=== PATIENT | female | born 1945 | race Caucasian/White ===

== ENCOUNTER → 2020-08-21 15:08 | Outpatient (BNV) | payer MEDICAID, SELFPAY | PROVIDERS: Visit Provider Internal Medicine Medical Oncology | DX: C20 Malignant neoplasm of rectum (principal); Z85.3 Personal history of malignant neoplasm of breast | CPT/HCPCS: 99213; 99214 ==

== ENCOUNTER 2020-09-13 16:52 | Outpatient (REF) | payer MEDICAID, SELFPAY ==
--- NOTE | 2020-09-13 | MM_ITS ---
EXAMINATION: MM SCREENING DIGITAL BREAST TOMOSYNTHESIS, BILATERAL CLINICAL INFORMATION: Screening. Status post right breast lumpectomy. COMPARISON: Mammography: September 07, 2018 and studies dating back to May 29, 2016. TECHNIQUE: Digital breast tomosynthesis is performed in both the craniocaudal and mediolateral oblique views along with computer-aided detection (CAD). Synthesized 2D images are generated from the tomosynthesis. FINDINGS: There are scattered areas of fibroglandular density (ACR BI-RADS breast composition Category b). No new abnormal dominant mass identified. No new suspicious grouping of microcalcifications. Status post postsurgical change from previous lumpectomy right breast. MM/MM tomosynthesis screening BI IMPRESSION: There are no significant changes from prior study. ASSESSMENT: BI-RADS 2: Benign RECOMMENDATION: Routine annual mammography screening. This patient's information was entered into a reminder system with a target due date for their next mammogram.
== END 2020-09-13 16:53 | disposition home or self-care (01) ==
LOC: HO.MAMMO 16:52
PROVIDERS: Visit Provider Internal Medicine Medical Oncology
DX: C50.911 Malignant neoplasm of unspecified site of right female breast (principal)
CPT/HCPCS: 77063; 77067; 99212

== ENCOUNTER → 2022-05-22 12:51 | Outpatient (BNVA) | payer MEDICAID, SELFPAY | PROVIDERS: PCP Internal Medicine; Visit Provider Internal Medicine | DX: R93.5 Abnormal findings on diagnostic imaging of other abdominal regions, including retroperitoneum (principal); R10.30 Lower abdominal pain, unspecified; K57.90 Diverticulosis of intestine, part unspecified, without perforation or abscess without bleeding | CPT/HCPCS: 99202 ==

== ENCOUNTER 2022-05-27 08:50 | Day surgery (SDC) | payer MEDICAID, SELFPAY ==
--- NOTE | 2022-05-27 09:18 | MHC.SHP ---
Pre-Procedural Eval Section A Date of Service: 05/27/22 The patient is an INPATIENT: No Changes since office visit: Yes New Medical Problems and Yes Patient answered all questions; No Cold of Flu in the past 2 weeks and No Changes in Medication The History & Physical has been completed within 30 days and I have reviewed it.: Yes Section B Chief Complaint: screening Allergies: Allergies Allergy/AdvReac Type Severity Reaction Status Date / Time shellfish derived Allergy Severe ANAPHYLAXIS Verified 05/22/22 13:00 [SHELLFISH DERIVED] Plan I have reviewed the history and physical and performed a pertinent physical examination on my patient. No changes have occurred unless specified.
--- NOTE | 2022-05-27 09:18 | PM.OP ---
Brief Operative Note Date of Service: 05/27/22 Pre-op diagnosis: Abnormal CT scan of the rectosigmoid Post-op diagnosis: other ( rectal mass, colon polyps, diverticulosis, right colon AVMs) Procedure: COLONOSCOPY TILL CECUM WITH BIOPSIES AND SNARE POLYPECTOMY Consent: Indications for the procedure and potential complications of bleeding, perforation, reaction to medications and missed diagnosis were discussed with the patient and informed consent was obtained. Instrument: Olympus PCF H 190 L variable stiffness pediatric colonoscope Monitoring: Vital signs and clinical assessment, intermittent blood pressure monitoring, continuous EKG monitoring, Pulse oximetry and Carbon Dioxide monitoring were done throughout the procedure. Colon withdrawl time was 25 minutes. Procedure: The patient was placed in the left lateral decubitis position and pre-procedure medications were administered. After a digital rectal examination of the ano-rectum, the video colonoscope was inserted into the rectum and advanced through the colon to the cecum. The colonoscope was slowly withdrawn in a retrograde panoramic fashion and the colon mucosa was carefully examined including a retroflexed view of the rectum. Findings and interventions are described below. Procedure Difficulty: Without difficulty Findings: Terminal Ileum: Not evaluated Cecum: An 8-9 mm sessile polyp removed with a cold snare. A 9-10 mm nonbleeding AVM. Ascending Colon: A 7-8 mm sessile polyp in the proximal ascending colon removed with a cold snare. Two 8-10 mm nonbleeding AVMs in the ascending colon. Transverse Colon: Normal Descending Colon: Moderate diverticulosis Sigmoid Colon: A 9-10 mm sessile polyp removed with a hot snare. Moderate diverticulosis Rectum: A polypoidal and circumferential mass from 0 to 8 cms occupying the distal rectum. Mass appeared friable and ulcerated from 0 to 5 cms. Multiple biopsies were obtained with with a cold biopsy forceps and a cold snare Ano-rectum: Possible infilteration of anal sphincter with the mass Colon preparation: Good Impression and Post Procedure Diagnosis: Colonoscopy Findings: Three small to medium sized polyps removed A polypoidal and circumferential mass from 0 to 8 cms occupying the distal rectum. 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 Multiple biopsies were obtained with with a cold biopsy forceps and a cold snare Moderate diverticulosis seen in the left colon Plan: Await pathology results Patient has an appointment on 05/29/22 in the [facility] with Dr Elena to discuss bx results. Repeat Colonoscopy interval based on path results - in 6 months if biopsies confirm rectal cancer. Dr Zeng was requested to step in during the procedure and advised referral to Oncology for chemo-radiation therapy first followed by re-staging Above findings were reviewed with the patient and her son (Dr Sadler - Senior Executive Assistant and Critical care Physician in [place]) Pt's son requested referral to Dr Flores whom pt has seen in the past for treatment of breast cancer. Colon polyps and diverticulosis handouts were given in the discharge area Surgeon: Sarai Lowe MD Anesthesia: MAC Was an Mid Level Java Developer used for this Procedure?: Yes Mid Level Java Developer: Rosemarie Cárdenas Estimated blood loss (mL): 2 Pathology: other (A. cecal polyp B. ascending colon polyp C. rectal mass bxs) Condition: stable Disposition: PACU
--- NOTE | 2022-05-27 09:32 | HO.ANESPROP2 ---
PMFSH Active Problems Active Problems: All Active Problems (Updated 09/13/20 @ 17:28 by Radha Hong MD) Breast cancer (Acute) Past Medical History Medical History Arthritis Hearing loss Osteopenia Family History Family History Father Cancer Diabetes HTN (hypertension) Mother Diabetes HTN (hypertension) Surgical History Surgical History History of lumpectomy of right breast History of Problems with Anesthesia: No Social History Social History Alcohol intake: never Advance Directives: No Advance Directives Information Provided: Yes Meds Allergies Allergy/AdvReac Type Severity Reaction Status Date / Time shellfish derived Allergy Severe ANAPHYLAXIS Verified 05/22/22 13:00 [SHELLFISH DERIVED] Home Medications Medication Instructions Recorded Confirmed Last Taken Type cefuroxime axetil 125 mg/5 mL oral 500 mg PO 05/22/22 Unknown History suspension Exam Exam Date and Time: May 27, 2022 0932 Airway Mallampati Class: II TM Dist: >3cm Neck ROM: Full Loose/Missing/Broken Teeth: No Heart: RRR Lungs: CTA Assessment and Plan Assessment Anesthesia Assessment: Anesthesia Plan Discussed and Chart Reviewed Final Anesthetic Review History of Problems with Anesthesia: No NPO: Yes ASA Class: II Final Preanesthetic Review: Meds/Allgs Chart Reviewed, Consent Obtained/Reviewed and Anes Risks/Benef Reviewed Patient Risk: Low Procedure Risk: Low Anesthetic Plan Anesthetic Plan: MAC: Disposition: Standard PACU
[2022-05-27 09:49] VITALS: BP 148/70; PULSE 66; RESP 18; TEMP 36.3; O2SAT 97; BMI 29.5
[2022-05-27] MEDS: Lactated Ringers 1,000 ML 50 ML IVCONT (10:00)
--- NOTE | 2022-05-27 10:08 | W.PM.OPN ---
Operative Note Operative Note Date of Service: 05/27/22 Narrative: Pre-op diagnosis: Abnormal CT scan of the rectosigmoid Post-op diagnosis:?other (? rectal mass, colon polyps, diverticulosis, right colon AVMs) Procedure: COLONOSCOPY TILL CECUM WITH BIOPSIES AND SNARE POLYPECTOMY Consent: Indications for the procedure and potential complications of bleeding, perforation, reaction to medications and missed diagnosis were discussed with the patient and informed consent was obtained. Instrument: Olympus PCF H 190 L variable stiffness pediatric colonoscope Monitoring: Vital signs and clinical assessment, intermittent blood pressure monitoring, continuous EKG monitoring, Pulse oximetry and Carbon Dioxide monitoring were done throughout the procedure. Colon withdrawl time was 25 minutes. Procedure: The patient was placed in the left lateral decubitis position and pre-procedure medications were administered. After a digital rectal examination of the ano-rectum, the video colonoscope was inserted into the rectum and advanced through the colon to the cecum. The colonoscope was slowly withdrawn in a retrograde panoramic fashion and the colon mucosa was carefully examined including a retroflexed view of the rectum. Findings and interventions are described below. Procedure Difficulty: Without difficulty Findings: Terminal Ileum: Not evaluated Cecum:? An 8-9 mm sessile polyp removed with a cold snare. A 9-10 mm? nonbleeding AVM. Ascending Colon:? A 7-8 mm sessile? polyp in the proximal ascending colon removed with a cold snare. Two 8-10 mm? nonbleeding AVMs in the ascending colon. Transverse Colon:? Normal Descending Colon:? ? Moderate diverticulosis Sigmoid Colon:? A 9-10 mm sessile polyp? removed with a hot snare.? Moderate diverticulosis Rectum:? A polypoidal and circumferential mass from 0 to 8 cms occupying the distal rectum.? Mass appeared friable and ulcerated from 0 to 5 cms.? Multiple biopsies were obtained with with a cold biopsy forceps and a cold snare Ano-rectum:? Possible infilteration of anal sphincter with the mass Colon preparation:? Good? Impression and Post Procedure Diagnosis: Colonoscopy Findings: Three small to medium sized polyps removed A polypoidal and circumferential mass from 0 to 8 cms occupying the distal rectum.? 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 Multiple biopsies were obtained with with a cold biopsy forceps and a cold snare Moderate diverticulosis seen in the left colon Plan: Await pathology results Patient has an appointment on 05/29/22 in the GI Clinic with Dr Elena to discuss bx results. Repeat Colonoscopy interval based on path results - in 6 months if biopsies confirm rectal cancer. Dr Zeng was requested to step in during the procedure and advised referral to Oncology for chemo-radiation therapy first followed by re-staging Above findings were reviewed with the patient and her son (Zaire - Nuclear Security Officer and Critical care Physician in [place]) Pt's son requested referral to Dr Flores whom pt has seen in the past for treatment of breast cancer. Colon polyps and diverticulosis handouts were given in the discharge area Surgeon: Sarai Lowe MD Anesthesia:?MAC Was an Observer Electrical Prospecting used for this Procedure?:?Yes Observer Electrical Prospecting:?Rosemarie Cárdenas Estimated blood loss (mL):?2 Pathology:?other (A. cecal polyp? B. ascending colon polyp? C. rectal mass bxs) Condition:?stable Disposition:?PACU
[2022-05-27 11:06] VITALS: BP 81/40; PULSE 60; RESP 16; TEMP 36.9; O2SAT 97
[2022-05-27 11:21] VITALS: BP 116/55; PULSE 60; RESP 18; O2SAT 98
[2022-05-27 11:36] VITALS: BP 138/61; PULSE 57; RESP 18; TEMP 36.8; O2SAT 97
== END 2022-05-27 12:46 | disposition home or self-care (01) ==
PROVIDERS: PCP Student in an Organized Health Care Education/Training Program; Visit Provider Internal Medicine Gastroenterology
PROC: 0DJD8ZZ Inspection of Lower Intestinal Tract, Via Natural or Artificial Opening Endoscopic (ICD-10-PCS; CPT 45378; principal; 2022-05-27 10:20)
DX: R93.3 Abnormal findings on diagnostic imaging of other parts of digestive tract (principal); R19.4 Change in bowel habit; R10.9 Unspecified abdominal pain; D12.0 Benign neoplasm of cecum; D12.2 Benign neoplasm of ascending colon; D12.8 Benign neoplasm of rectum; K62.89 Other specified diseases of anus and rectum; K57.30 Diverticulosis of large intestine without perforation or abscess without bleeding; K55.20 Angiodysplasia of colon without hemorrhage; I10 Essential (primary) hypertension; Z85.3 Personal history of malignant neoplasm of breast; Z92.21 Personal history of antineoplastic chemotherapy; M85.80 Other specified disorders of bone density and structure, unspecified site; Z92.3 Personal history of irradiation; H91.90 Unspecified hearing loss, unspecified ear
CPT/HCPCS: 45385; 45380; 88305

== ENCOUNTER → 2022-05-29 11:01 | Outpatient (BNVA) | payer MEDICAID, SELFPAY | PROVIDERS: PCP Student in an Organized Health Care Education/Training Program; Referring Provider Student in an Organized Health Care Education/Training Program; Visit Provider Internal Medicine | DX: K62.89 Other specified diseases of anus and rectum (principal); D12.0 Benign neoplasm of cecum; D12.2 Benign neoplasm of ascending colon; Z98.890 Other specified postprocedural states | CPT/HCPCS: 99212 ==

== ENCOUNTER 2022-05-30 09:30 | Outpatient (REF) | payer MEDICAID, SELFPAY | END 2022-05-30 09:31 | disposition home or self-care (01) | LOC: HO.LAB 09:30 | PROVIDERS: Visit Provider Surgery | DX: K62.89 Other specified diseases of anus and rectum (principal) | CPT/HCPCS: 88305; 88341; 88342 ==

== ENCOUNTER 2022-05-30 13:23 | Day surgery (SDC) | payer MEDICAID, SELFPAY ==
[2022-05-30 13:53] VITALS: BP 142/74; PULSE 82; RESP 18; TEMP 36.1; O2SAT 98; BMI 24.9
--- NOTE | 2022-05-30 15:00 | HO.ANESPROP2 ---
HPI - Anesthesia Eval Consult details Narrative: 76 yo female patient for flexible sigmoidoscopy PMFSH Active Problems Active Problems: All Active Problems (Updated 05/30/22 @ 09:17 by Vignesh Zeng MD) History of breast cancer (Acute) Rectal mass (Acute) Breast cancer (Acute) Past Medical History Medical History (Updated 05/30/22 @ 09:17 by Vignesh Zeng MD) Arthritis Hearing loss History of breast cancer Osteopenia Family History Family History Father Cancer Diabetes HTN (hypertension) Mother Diabetes HTN (hypertension) Family history of problems with anesthesia: No Surgical History Surgical History History of lumpectomy of right breast History of Problems with Anesthesia: No Social History Social History Are you a primary director of career resources to a significant other at home: No Alcohol intake: never Patient Tobacco Use Status: Never used Tobacco Use of substances other than those prescribed or required for medical reasons: No Are you DNR?: No Advance Directives: No Advance Directives Information Provided: Yes Meds Allergies Allergy/AdvReac Type Severity Reaction Status Date / Time shellfish derived Allergy Severe ANAPHYLAXIS Verified 05/30/22 08:35 [SHELLFISH DERIVED] Active Medications: Current Medications Lactated Ringer's (Lr) 1,000 mls @ 50 mls/hr IVCONT .Q20H BUTCH Home Medications Medication Instructions Recorded Confirmed Last Taken Type cefuroxime axetil 125 mg/5 mL oral 500 mg PO 05/22/22 05/30/22 Unknown History suspension Exam Exam Date and Time: May 30, 2022 1500 Height,Weight and Vital Signs: Height 5 ft 4 in Weight 65.771 kg Last Vital Signs Temp 97.0 F 05/30/22 13:53 Pulse 82 05/30/22 13:53 Resp 18 05/30/22 13:53 BP 142/74 H 05/30/22 13:53 Pulse Ox 98 05/30/22 13:53 O2 Del Method 05/30/22 13:53 Airway Mallampati Class: II TM Dist: >3cm Neck ROM: Full Loose/Missing/Broken Teeth: No Heart: RRR Lungs: CTAB Assessment and Plan Assessment Anesthesia Assessment: Anesthesia Plan Discussed and Chart Reviewed Final Anesthetic Review Family History of Problems with Anesthesia: No History of Problems with Anesthesia: No NPO: Yes ASA Class: II Final Preanesthetic Review: No Changes in Pt Med Stat, Meds/Allgs Chart Reviewed, Consent Obtained/Reviewed and Anes Risks/Benef Reviewed Patient Risk: Low Procedure Risk: Low Assessment/Block/Sedation in SS: Assess/Block/Sedation-SS Anesthetic Plan Anesthetic Plan: MAC: Disposition: Standard PACU
--- NOTE | 2022-05-30 15:13 | MHC.SHP ---
Pre-Procedural Eval Section A Date of Service: 05/30/22 The patient is an INPATIENT: No The History & Physical has been completed within 30 days and I have reviewed it.: Yes Section B Chief Complaint: Other specified diseases of anus and rectum Allergies: Allergies Allergy/AdvReac Type Severity Reaction Status Date / Time shellfish derived Allergy Severe ANAPHYLAXIS Verified 05/30/22 08:35 [SHELLFISH DERIVED] Review of Systems Review of Systems Comment: unchanged from office visit Exam Exam Comment: Gen appear: No acute distress, well nourished HEENT: no icterus, Chest: No overt resp distress Abd: soft, tenderness in suprapubic region Psych: Stable affect, answering questions appropriately Neuro: A/Ox3 noted to move all extremities spontaneously Ext: no peripheral edema Plan Diagnosis/Plan: Unchanged I have reviewed the history and physical and performed a pertinent physical examination on my patient. No changes have occurred unless specified.
--- NOTE | 2022-05-30 15:37 | W.PM.OPN ---
Operative Note Operative Note Date of Service: 05/30/22 Narrative: Procedure: Flexible sigmoidoscopy Indication: Known rectal mass; rebiopsy Endoscopist: Mariam Elena MD Anesthesia Provider: Dr Zoila Greer Anesthesia type: MAC Instrument: Olympus GIF-190 Consent: Indication, risks vs benefits, and alternatives were discussed with the patient who gave written informed consent to proceed. Monitoring: EKG, pulse, pulse oximetry and blood pressure were monitored throughout the procedure. Medications: Please see anesthesia flowsheet. Procedure: The patient was brought to the procedure room and placed in the left lateral decubitus position. IV medications were administered by the anesthesia provider in attendance. A digital rectal exam was performed which was abnormal due to palpable nodularity in the posterior rectal wall. The gastroscope was then inserted through the anus and advanced through the colon to the distal sigmoid colon at 30 cm. Mucosa was carefully examined under high definition white light as the instrument was slowly withdrawn in a retrograde panoramic fashion. Retroflexion was performed in rectum. The procedure was not difficult. There were no immediate obvious complications. Limitations: No limitations. Findings: Mucosa: Villous appearing polyp noted carpeting almost the entire circumference of the rectum up to 9 cm. Within the laterally spreading polyp, there was a friable fungating focus spanning 2-3 cm suspicious for underlying malignancy, located at 3 cm from the anus. This was carefully inspected in both anterograde and retroflexed view. It is very close to the dentate line but does not appear to involve the squamocolumnar junction. Cold forceps biopsies were taken. Impression: 1. Known rectal mass/polyp (size 6-7 cm) with a focus of friable and fungating tissue suspicious for underlying malignancy. (biopsy) Recommendations: - Further management surgical vs med onc contingent on results of the biopsy. - Some bleeding may occur today due to extensive biospies. - Cont low fibre diet and miralax to keep stools soft/liquidy.
[2022-05-30 15:45] VITALS: BP 117/60; PULSE 63; RESP 16; TEMP 36.7; O2SAT 97
[2022-05-30 16:00] VITALS: BP 148/64; PULSE 58; RESP 16; TEMP 36.7; O2SAT 98
== END 2022-05-30 16:20 ==
PROVIDERS: PCP Student in an Organized Health Care Education/Training Program; Visit Provider Internal Medicine
PROC: 0DJD8ZZ Inspection of Lower Intestinal Tract, Via Natural or Artificial Opening Endoscopic (ICD-10-PCS; CPT 45330; principal; 2022-05-30 14:50)
DX: K62.89 Other specified diseases of anus and rectum (principal); D12.8 Benign neoplasm of rectum; K62.5 Hemorrhage of anus and rectum; R63.4 Abnormal weight loss; Z68.29 Body mass index [BMI] 29.0-29.9, adult; M85.80 Other specified disorders of bone density and structure, unspecified site; M19.90 Unspecified osteoarthritis, unspecified site; Z85.3 Personal history of malignant neoplasm of breast; H91.90 Unspecified hearing loss, unspecified ear; Z98.890 Other specified postprocedural states
CPT/HCPCS: 45331; 46600; 88305; 99202

== ENCOUNTER → 2022-06-13 08:40 | Outpatient (BNVA) | payer MEDICAID, SELFPAY | PROVIDERS: PCP Student in an Organized Health Care Education/Training Program; Referring Provider Student in an Organized Health Care Education/Training Program; Visit Provider Surgery | DX: C20 Malignant neoplasm of rectum (principal) | CPT/HCPCS: 99212 ==

== ENCOUNTER 2022-06-18 09:00 | Outpatient (REF) | payer MEDICAID, SELFPAY ==
--- NOTE | ~2022-06-18 | PE_ITS ---
EXAMINATION: Fluorine-18 FDG PET/CT Scan CLINICAL INDICATION: Initial treatment management. Rectal carcinoma PROCEDURE: 60 minutes following the intravenous administration of 16.8 mCi of fluorine 18 FDG, images from the base of the skull to the mid thighs were obtained using a combined PET/CT scanner with CT scan based attenuation correction. No oral contrast was administered. No intravenous contrast was administered. Transverse, coronal, sagittal, and volume reconstruction projections were obtained. The patient's blood glucose as determined by a finger stick, was 92 mg/dl immediately prior to injection. Total CT exam dose-length product 472.78 mGy-cm * These CT images were obtained using dose optimization techniques as appropriate, variously including the following: Automated exposure control * Adjustment of mA and/or kV according to patient size (this includes techniques or standardized protocols for targeted exams where dose is matched to indication/reason for exam; i.e. extremities or head) * Use of iterative reconstruction technique COMPARISON: No previous PET/CT scan is available for comparison. No other relevant imaging studies are available for comparison. FINDINGS: NECK AND VISUALIZED HEAD: No foci of abnormal FDG activity are noted. The distribution of FDG activity is physiological. There is no cervical lymphadenopathy. THORAX: No foci of abnormal FDG activity are present in the chest. A few subcentimeter pulmonary nodules are visualized: 0.3 cm right upper lobe, slice 174/698; 0.5 cm right middle lobe, slice 228/698; 0.7 cm left lower lobe, slice 250/698; and 0.3 cm left upper lobe, slice 200/698. All these are too small to be characterized on the FDG PET images. There is no pleural or pericardial fluid, or pneumothorax. A cluster of subcentimeter right lower pretracheal lymph nodes show mild FDG activity, SUVmax 3.0, slice 66/267. No additional mediastinal lymphadenopathy is present. There is no axillary or supraclavicular lymphadenopathy present. ABDOMEN AND PELVIS: There is intense abnormal FDG activity associated with circumferential wall thickening in the rectum, SUVmax 24.2, slice 187/267. Wall thickening measures up to 1.1 cm in thickness, in the right side of the rectum and the abnormality extends approximately 10.4 cm in cephalocaudad dimension within the rectum. Several left perirectal lymph nodes are present, but these do not show abnormal FDG activity. The largest measures 1.7 x 1.1 cm in transverse dimensions, slice 192/267. No additional foci of abnormal FDG activity are present in the abdomen or pelvis. The liver, gallbladder, and spleen are unremarkable. A 2.4 cm hypodense cyst in the upper pole of the left kidney is markedly FDG photopenic and likely a simple cyst. The kidneys are otherwise unremarkable. The adrenal glands and pancreas are unremarkable. There is mild FDG activity throughout the gastrointestinal tract, but other than the intense rectal abnormality, there are no additional suspicious foci of abnormal FDG activity in the gastrointestinal tract. There is diverticulosis without evidence of diverticulitis. The hollow viscera are otherwise unremarkable. There is no additional pelvic, retroperitoneal, inguinal or mesenteric lymphadenopathy. No additional abnormalities are present in the pelvic organs. MUSCULOSKELETAL: There are no foci of abnormal FDG activity in the osseous structures. There are degenerative changes in the spine, most severely in the mid thoracic spine. There are no suspicious sclerotic or lytic lesions visualized. VASCULAR: Diffuse vascular calcifications including coronary are noted. PET/PET CT fusion skull to thigh IMPRESSION: 1. Intensely FDG avid rectal wall thickening involving approximately 10 cm of cephalocaudad length in the rectum is most consistent with a primary rectal malignancy. 2. A few mildly enlarged perirectal lymph nodes are present but these do not show abnormal FDG activity and are nonspecific. 3. Several subcentimeter pulmonary nodules are present as described above, all too small to be characterized on the FDG PET images. Follow-up with diagnostic CT imaging in approximately 6 months is recommended. 4. No additional abnormalities suspicious for metastatic or other malignant lesions are noted. 5. Vascular calcifications including coronary.
== END 2022-06-18 09:01 | disposition home or self-care (01) ==
LOC: HO.PET 09:00
PROVIDERS: Visit Provider Internal Medicine Medical Oncology
DX: Z13.89 Encounter for screening for other disorder (principal)

== ENCOUNTER 2022-07-05 08:39 | Day surgery (SDC) | payer MEDICAID, SELFPAY ==
--- NOTE | ~2022-07-05 | IR_ITS ---
PROCEDURE: IR INSERTION OF TUNNEL CATHETER CLINICAL INFORMATION: Rectal cancer. Remote history of breast cancer. COMPARISON: None TECHNIQUE: Procedure and risks and benefits including bleeding, infection and pneumothorax were discussed with the patient and her son and informed consent was obtained. All elements of maximal sterile barrier technique followed including use of cap, mask, sterile gown, sterile gloves, a sterile full body drape and hand hygiene. Also followed skin preparation with 2% chlorhexidine for cutaneous antisepsis, and sterile ultrasound preparation with sterile gel and probe cover when applicable. The right neck and upper chest were prepped and draped in the usual sterile fashion. The skin and soft tissues were anesthetized with 1% lidocaine plain. Using ultrasound guidance and a 5 Chadian micropuncture system, right internal jugular vein access was obtained. Over a 0.018 wire, a 5 Chadian dilator was positioned in the SVC. The skin and soft tissues of the right upper anterior chest were anesthetized with 1% lidocaine plain. A small incision was made. Using blunt dissection, a subcutaneous pocket was created. A subcutaneous tunnel from the chest to the neck incision was anesthetized with 1% lidocaine plain. Using a tunneler, a 6.6 Chadian single-lumen catheter was tunneled from the chest to the neck incision. The catheter was attached to the port. The port was positioned in the subcutaneous pocket and secured using two 2-0 nonabsorbable sutures. A 0.035 guidewire was advanced through the 5 Chadian dilator into the IVC. Using bent wire technique, catheter length was estimated and the catheter was cut. Catheter length is 22 cm. The catheter was fed through the peel-away sheath. The neck incision was closed using a 4-0 absorbable subcuticular suture. The chest incision was closed using four 3-0 absorbable interrupted sutures followed by a running 4-0 absorbable subcuticular suture. The port was accessed. The port had good blood return, flushed easily and was instilled with 5 mL heparin 100 unit per mL solution. Real-time ultrasound guidance was used to document vein patency and for needle entry. A formal ultrasound picture was recorded. Fluoroscopy time 0.6 minutes. Total dose 4.3 mCi. Conscious sedation was provided by a registered nurse under my direct supervision. The patient received Versed 1.5 mg and fentanyl 75 mcg intravenously during the procedure. Total sedation time was 50 minutes. FINDINGS: There is a right internal jugular 6.6 Chadian single-lumen Dignity Port-A-Cath with tip projecting over the cavoatrial junction. IR/IR cvc insert tunnel w prt/dentistry teacher IMPRESSION: Right internal jugular 6.6 Chadian single-lumen Dignity Port-A-Cath placement.
[2022-07-05 09:07] LABS: MANUAL DIFF FLAG NO
[2022-07-05 09:09] VITALS: BMI 27.8
[2022-07-05 09:13] LABS: Basophils Absolute Auto 0.1 X10*3/uL (0.0-0.2); Basophils Percent Auto 0.6 % (0-2); Eosinophils Absolute Auto 0.1 X10*3/uL (0.0-0.4); Eosinophils Percent Auto 1.2 % (0-4); Hematocrit 41.2 % (37.0-47.0); Hemoglobin 12.9 g/dl (12.0-16.0); Imm Gran Abs Auto 0.05 X10*3/uL (0.00-0.03); Imm Gran Pct Auto 0.4 % (0.0-0.4); Lymphocytes Absolute Auto 3.7 X10*3/uL (1.2-4.9); Lymphocytes Percent Auto 33.1 % (20-40); Mean Corpuscular HGB Conc 31.3 g/dl (31.0-35.0); Mean Corpuscular Hemoglobin 26.2 pg (27.0-33.0); Mean Corpuscular Volume 83.7 fL (80.0-98.0); Mean Platelet Volume 10.6 fL (9.4-12.3); Monocytes Absolute Auto 0.9 X10*3/uL (0.1-1.2); Monocytes Percent Auto 8.3 % (2-11); Neutrophils Absolute Auto 6.3 x10*3/uL (2.0-8.3); Neutrophils Percent Auto 56.4 % (45-73); Platelet Count 296 X10*3/uL (160-400); Red Blood Count 4.92 X10*6/uL (4.20-5.50); Red Cell Distribution Width 15.3 % (11.0-16.0); White Blood Count 11.2 X10*3/uL (4.8-10.8)
[2022-07-05 09:27] LABS: Anion Gap 15 (12-20); Blood Urea Nitrogen 14 mg/dL (9-16); Carbon Dioxide 22 mmol/L (22-29); Chloride 105 mmol/L (96-108); Creatinine Clr Calc Pharmacy 59.1; Estimated Glomerular Filt Rate > 60; Potassium 4.4 mmol/L (3.3-5.1); Sodium 138 mmol/L (135-145)
[2022-07-05 09:28] LABS: INTERNATIONAL NORM RATIO 1.1 (0.9-1.1); Prothrombin Time 12.7 SEC (10.0-13.1)
[2022-07-05 09:31] LABS: Partial Thromboplastin Time 28.3 SEC (26.0-36.4)
[2022-07-05 12:45] VITALS: BP 139/51; PULSE 63; RESP 14; TEMP 36.6; O2SAT 100
--- NOTE | 2022-07-05 12:50 | HO.RADPN ---
RADIOLOGY Narrative Narrative: RIJ 6.6 fr Dignity portacath placed. Tip in SVC..
[2022-07-05 13:00] VITALS: BP 125/59; PULSE 67; RESP 16; O2SAT 100
[2022-07-05] MEDS: Acetaminophen Oral Liquid 650 MG/20.3 ML SOLUTION PO (13:05)
[2022-07-05 13:15] VITALS: BP 136/61; PULSE 71; RESP 16; O2SAT 100
[2022-07-05 13:30] VITALS: BP 133/64; PULSE 69; RESP 19; O2SAT 100
[2022-07-05 13:45] VITALS: BP 126/59; PULSE 75; RESP 17; TEMP 36.7; O2SAT 100
== END 2022-07-05 14:05 | disposition home or self-care (01) ==
PROVIDERS: Radiology Diagnostic Radiology; PCP Student in an Organized Health Care Education/Training Program; Visit Provider Internal Medicine Medical Oncology
DX: C20 Malignant neoplasm of rectum (principal); Z85.3 Personal history of malignant neoplasm of breast
CPT/HCPCS: 36415; 36561; 76937; 80051; 82565; 84520; 85025; 85610; 85730; 99152; 99153; C1769; C1788; J0690; J1642; J2250; J3010

== ENCOUNTER 2023-03-24 11:45 | Outpatient (REF) | payer MEDICAID, SELFPAY ==
--- NOTE | ~2023-03-24 | CT_ITS ---
EXAMINATION: CT CHEST, ABDOMEN, AND PELVIS WITH CONTRAST CLINICAL INFORMATION: 77-year-old female with restaging for rectal carcinoma COMPARISON: PET/CT from 06/18/2022 TECHNIQUE: Multidetector volumetric CT imaging of the chest, abdomen, and pelvis was obtained after the administration of 85 mL of Omnipaque 350 intravenous contrast without immediate adverse reactions. Axial MIP volume rendering provided. Sagittal and coronal reformatted images were obtained. This CT examination was performed using dose optimization techniques as appropriate, variously including the following: *Automated exposure control *Adjustment of mA and/or kV according to patient size (this includes techniques or standardized protocols for targeted exams where dose is matched to indication/reason for exam; i.e. extremities or head) *Use of iterative reconstruction technique DLP: 120 mGy-cm FINDINGS: Device: There is Port-A-Cath present on the right. LUNGS: There are numerous new and growing nodules seen in the lungs such as largest nodule on the right measured 0.9 x 1.2 cm in the right upper lobe seen on image 18 series 4 right lower lobe 0.6 by centimeter right lower lobe nodule on image 27, conglomerate of nodules in the left lower lobe measured 1.4 x 1.0 cm, 1.1 cm nodule seen in the right lower lobe abating the diaphragm. MEDIASTINUM: There are no bulky mediastinal or hilar lymphadenopathy seen. CORONARY ARTERY CALCIFICATION: Unremarkable PLEURA: There is no pleural effusion. No pleural mass or thickening. AXILLA: No lymphadenopathy by size criteria. There is questionable mass in the right breast versus postradiation treatment with spiculated lesion seen retroareolar, correlate with mammography history. LIVER, GALLBLADDER, AND BILIARY TREE: The liver appears unremarkable in size, shape, and attenuation. No focal hepatic lesion or biliary ductal dilatation is appreciated. Unremarkable appearance of the gallbladder. PANCREAS: Unremarkable SPLEEN: Unremarkable ADRENAL GLANDS: Unremarkable KIDNEYS AND URETERS: There is simple cyst in interpolar cortex of left kidney, measured 2.8 cm. No evidence of hydroureteronephrosis or stones. BLADDER: Unremarkable GASTROINTESTINAL TRACT: Rectosigmoid ductal region revealed irregular wall of the rectum and there is colostomy. Appendix is unremarkable. Small bowel loops are normal. ABDOMINAL WALL: There is colostomy on the left. LYMPH NODES: No evidence of adenopathy by size criteria. VASCULAR: Unremarkable. PELVIC VISCERA: Uterus revealed large amount of fluid in endometrial canal adnexa are unremarkable. OSSEOUS STRUCTURES: Unremarkable. CT/CT abdomen pelvis w IV con IMPRESSION: 1. Numerous new and growing lung nodules suggestive for metastasis. 2. Rectal mass. 3. Simple cyst in the left kidney. 4. Fluid in endometrial canal. 5. Questionable mass in the right breast, correlate with mammography.
[2023-03-24] MEDS: Barium Sulfate Oral (Vanilla) 450 ML ORAL.SUSP 900 ML PO (16:06)
[2023-03-24] MEDS: iohexoL 350 MG/ML 100 ML INFUS..BTL IV (16:06)
[2023-03-25 06:55] LABS: Creatinine POC 0.5 mg/dL (0.5-1.4); GFR POC > 60
== END 2023-03-24 11:46 | disposition home or self-care (01) ==
LOC: HO.CT 11:45
PROVIDERS: Visit Provider Internal Medicine Medical Oncology
DX: C20 Malignant neoplasm of rectum (principal); K62.89 Other specified diseases of anus and rectum
CPT/HCPCS: 71260; 74177; 82565; Q9967

== ENCOUNTER 2023-05-09 08:57 | Outpatient (REF) | payer MEDICAID, SELFPAY ==
--- NOTE | ~2023-05-09 | MM_ITS ---
EXAMINATION: MM DIAGNOSTIC DIGITAL BREAST TOMOSYNTHESIS, BILATERAL This study should be associated with the right breast ultrasound. The accession number for that study is [id number] [facility] [place]. CLINICAL INFORMATION: 77-year-old patient with a history of conservatively treated right breast cancer in the remote past currently underwent recent chest CT for restaging in the setting of rectal cancer. This CT noted a right retroareolar breast mass and further workup is advised with breast imaging. COMPARISON: Mammography: This study is compared to prior mammograms dating back to 2017. MAMMOGRAM: TECHNIQUE: Digital breast tomosynthesis is performed in both the craniocaudal and mediolateral oblique views along with computer-aided detection (CAD). Synthesized 2D images are generated from the tomosynthesis. A full lateral view of the right breast was performed. FINDINGS: There are scattered areas of fibroglandular density (ACR BI-RADS breast composition Category b). There are no significant masses, abnormal calcifications, or other abnormalities in either breast. There is no mammographic correlate with the area of concern on the CT scan. There are mild architectural changes in the medial aspect of the right breast from prior cancer surgery. There is a central venous access port overlying the superior aspect of the right breast. ULTRASOUND: Targeted sonography of the retroareolar region of the right breast extending to the chest wall was performed. There is no focal abnormality. Results are provided to the patient at time of visit by the technologist. MM/MM tomosynthesis diagnostic BI IMPRESSION: Benign mammographic findings related to prior right breast surgery for cancer. No mammographic or sonographic signs of malignancy in either breast at this time. ASSESSMENT: BI-RADS BI-RADS 2 - Benign Findings (accession [id number]), BI-RADS 1 - Negative (accession [id number]) RECOMMENDATION: 1 year F/U This patient's information was entered into a reminder system with a target due date for their next mammogram.
--- NOTE | ~2023-05-09 | US_ITS ---
EXAMINATION: MM DIAGNOSTIC DIGITAL BREAST TOMOSYNTHESIS, BILATERAL This study should be associated with the right breast ultrasound. The accession [place] for that study [place] [id number] [facility] [place] CLINICAL INFORMATION: 77-year-old patient with a history of conservatively treated right breast cancer in the remote past currently underwent recent chest CT for restaging in the setting of rectal cancer. This CT noted a right retroareolar breast mass and further workup is advised with breast imaging. COMPARISON: Mammography: This study is compared to prior mammograms dating back to 2017. MAMMOGRAM: TECHNIQUE: Digital breast tomosynthesis is performed in both the craniocaudal and mediolateral oblique views along with computer-aided detection (CAD). Synthesized 2D images are generated from the tomosynthesis. A full lateral view of the right breast was performed. FINDINGS: There are scattered areas of fibroglandular density (ACR BI-RADS breast composition Category b). There are no significant masses, abnormal calcifications, or other abnormalities in either breast. There is no mammographic correlate with the area of concern on the CT scan. There are mild architectural changes in the medial aspect of the right breast from prior cancer surgery. There is a central venous access port overlying the superior aspect of the right breast. ULTRASOUND: Targeted sonography of the retroareolar region of the right breast extending to the chest wall was performed. There is no focal abnormality. Results are provided to the patient at time of visit by the technologist. US/US breast RT limited mamm only IMPRESSION: Benign mammographic findings related to prior right breast surgery for cancer. No mammographic or sonographic signs of malignancy in either breast at this time. ASSESSMENT: BI-RADS BI-RADS 2 - Benign Findings (accession [id number]), BI-RADS 1 - Negative (accession [id number]) RECOMMENDATION: 1 year F/U This patient's information was entered into a reminder system with a target due date for their next mammogram.
[2023-05-09 08:53] LABS: MANUAL DIFF FLAG NO
[2023-05-09 09:11] LABS: Basophils Absolute Auto 0.1 X10*3/uL (0.0-0.2); Basophils Percent Auto 0.6 % (0-2); Eosinophils Absolute Auto 0.1 X10*3/uL (0.0-0.4); Eosinophils Percent Auto 1.7 % (0-4); Hematocrit 34.9 % (37.0-47.0); Hemoglobin 10.8 g/dl (12.0-16.0); Imm Gran Abs Auto 0.03 X10*3/uL (0.00-0.03); Imm Gran Pct Auto 0.4 % (0.0-0.4); Lymphocytes Percent Auto 25.2 % (20-40); Mean Corpuscular HGB Conc 30.9 g/dl (31.0-35.0); Mean Corpuscular Hemoglobin 26.7 pg (27.0-33.0); Mean Corpuscular Volume 86.4 fL (80.0-98.0); Monocytes Absolute Auto 0.8 X10*3/uL (0.1-1.2); Monocytes Percent Auto 9.6 % (2-11); Neutrophils Absolute Auto 4.9 x10*3/uL (2.0-8.3); Neutrophils Percent Auto 62.5 % (45-73); Platelet Count 262 X10*3/uL (160-400); Red Blood Count 4.04 X10*6/uL (4.20-5.50); White Blood Count 7.8 X10*3/uL (4.8-10.8)
[2023-05-09 10:23] LABS: Alanine Aminotransferase 8 U/L (0-31); Albumin Level 3.4 g/dL (3.5-5.0); Alkaline Phosphatase 58 U/L (39-117); Aspartate Amino Transferase 16 U/L (5-31); Bilirubin Total 0.7 mg/dL (0.0-1.0); Blood Urea Nitrogen 9 mg/dL (9-16); Calcium 9.3 mg/dL (8.4-10.2); Chloride 111 mmol/L (96-108); Estimated Glomerular Filt Rate > 60; Glucose Random 120 mg/dL (60-115); Iron 40 mcg/dL (30-160); Percent Iron Saturation 14 % (15-50); Potassium 3.8 mmol/L (3.3-5.1); Sodium 141 mmol/L (135-145); Total Iron Binding Capacity 279 mcg/dL (228-428); Unsaturated Iron Binding 239 ug/dL
[2023-05-09 10:50] LABS: Anion Gap 14 (12-20); Carbon Dioxide 20 mmol/L (22-29)
== END 2023-05-09 08:58 | disposition home or self-care (01) ==
LOC: HO.MAMMO 08:57
PROVIDERS: Internal Medicine Hypertension Specialist; PCP Student in an Organized Health Care Education/Training Program; Visit Provider Internal Medicine Medical Oncology
DX: N63.15 Unspecified lump in the right breast, overlapping quadrants (principal); Z85.3 Personal history of malignant neoplasm of breast; C20 Malignant neoplasm of rectum
CPT/HCPCS: 36415; 76642; 77062; 77066; 80053; 83540; 85025

== ENCOUNTER → 2023-05-09 09:00 | Outpatient (BNV) | payer MEDICAID, SELFPAY | PROVIDERS: PCP Student in an Organized Health Care Education/Training Program; Visit Provider Radiology Diagnostic Radiology | DX: R92.2 Inconclusive mammogram (principal) | CPT/HCPCS: 76642; 77066 ==

== ENCOUNTER 2023-06-02 12:28 | Outpatient (REF) | payer MEDICAID, SELFPAY ==
--- NOTE | ~2023-06-02 | CT_ITS ---
EXAMINATION: CT ABDOMEN AND PELVIS WITHOUT CONTRAST CLINICAL INFORMATION: Follow-up rectal cancer. COMPARISON: Previous CT scan and most recent March 2023 TECHNIQUE: Multidetector volumetric imaging was performed from the superior aspect of the liver through the pubic symphysis. Sagittal and coronal reformatted images were obtained on the technologist's workstation. This CT examination was performed using dose optimization techniques as appropriate, variously including the following: *Automated exposure control *Adjustment of mA and/or kV according to patient size (this includes techniques or standardized protocols for targeted exams where dose is matched to indication/reason for exam; i.e. extremities or head) *Use of iterative reconstruction technique DLP: 620 mGy-cm FINDINGS: LUNG BASES: See chest CT report from the same day LIVER, GALLBLADDER, AND BILIARY TREE: The liver is normal in size, shape, and attenuation. No focal hepatic lesion or biliary ductal dilatation is present. The gallbladder is unremarkable with no evidence of radiopaque gallstones, gallbladder wall thickening, or obvious pericholecystic inflammatory changes. PANCREAS: Unremarkable. SPLEEN: Unremarkable. ADRENAL GLANDS: Unremarkable. KIDNEYS AND URETERS: The kidneys are normal in size, shape, and attenuation. No hydronephrosis, hydroureter, or calculi seen. No perinephric stranding. Left renal cyst. No imaging follow-up recommended. BLADDER: Unremarkable. GASTROINTESTINAL TRACT: Postsurgical changes following left lower quadrant colostomy and Noemy pouch. There is residual wall thickening of the remaining rectum and sigmoid colon. This appears slightly distended and fluid-filled. This is similar to March 2023 exam. There is a stranding of the perirectal fat. There is a small amount of fluid seen in the presacral space. This appears unchanged. There is diverticulosis of the colon. Visualized bowel is otherwise unremarkable. The stomach is unremarkable. ABDOMINAL WALL: Small parastomal hernia containing fat. LYMPH NODES: There is an enlarged left internal iliac lymph node measuring 1.2 cm in short axis axial image 72 series 2 that is unchanged. There are small retroperitoneal lymph nodes in the abdomen and pelvis and small bilateral inguinal lymph nodes. These appear unchanged. No ascites. VASCULAR: Atherosclerotic disease. No aneurysm. PELVIC VISCERA: There is fluid seen in the endocervical canal. There is fluid seen in the vagina and small amount of air. Possible rectovaginal fistula should be considered. OSSEOUS STRUCTURES: Degenerative changes of the spine and hip joints. CT/CT abdomen pelvis wo IV con IMPRESSION: Stable postsurgical changes following left lower quadrant colostomy and Noemy pouch. The rectum and remaining distal colon is slightly distended, demonstrates wall thickening and is fluid-filled. This is similar to previous exam. There is stranding of the fat surrounding the rectum and small amount of fluid in the presacral space. This is unchanged. There is an enlarged left internal iliac lymph node measuring 1.2 cm in short axis that is unchanged. There is question of rectovaginal fistula also unchanged. Fleischner guidelines were followed.
--- NOTE | ~2023-06-02 | CT_ITS ---
EXAMINATION: CT CHEST WITHOUT CONTRAST CLINICAL INFORMATION: Rectal cancer. Follow-up pulmonary nodules. COMPARISON: Previous chest CT most recent March 2023 TECHNIQUE: Multidetector volumetric CT imaging of the chest was done. Axial MIP volume rendering provided. Sagittal and coronal reformatted images were obtained. This CT examination was performed using dose optimization techniques as appropriate, variously including the following: *Automated exposure control *Adjustment of mA and/or kV according to patient size (this includes techniques or standardized protocols for targeted exams where dose is matched to indication/reason for exam; i.e. extremities or head) *Use of iterative reconstruction technique DLP: 208 mGy-cm FINDINGS: LUNGS: Interval increase in size in pulmonary nodules. Largest right pulmonary nodule measures 1.2 cm in the right upper lobe axial image 148 series 4 compared to 1 cm March 2023 exam. Largest left pulmonary nodule measures 1.5 cm in the left lower lobe axial image 332 series 4 compared to 1.3 cm March 2023. Increased reticular markings in the anterior peripheral or subpleural right upper lobe. This is unchanged. MEDIASTINUM: Upper normal heart size. [id number] coronary artery calcification. No pericardial effusion. Small stable mediastinal lymph nodes. No enlarged lymph nodes. CORONARY ARTERY CALCIFICATION: Mild to moderate PLEURA: There is no pleural effusion. No pleural mass or thickening. AXILLA: Small bilateral axillary lymph nodes. No enlarged lymph nodes or chest wall mass. UPPER ABDOMEN: See abdominal and pelvic CT report from the same day. OSSEOUS STRUCTURES: Degenerative changes of the spine. CT/CT chest wo IV con IMPRESSION: Interval increase in size in the bilateral pulmonary nodules. Fleischner guidelines were followed.
[2023-06-02] MEDS: Barium Sulfate Oral (Berry) 450 ML ORAL.SUSP 900 ML PO (16:09)
== END 2023-06-02 12:29 | disposition home or self-care (01) ==
LOC: HO.CT 12:28
PROVIDERS: PCP Student in an Organized Health Care Education/Training Program; Visit Provider Internal Medicine Medical Oncology
DX: R91.8 Other nonspecific abnormal finding of lung field (principal); C20 Malignant neoplasm of rectum
CPT/HCPCS: 71250; 74176

== ENCOUNTER 2023-07-14 10:45 | Outpatient (REF) | payer MEDICAID, SELFPAY ==
[2023-07-14 11:03] LABS: Hematocrit 30.6 % (37.0-47.0); Hemoglobin 9.4 g/dl (12.0-16.0); Mean Corpuscular HGB Conc 30.7 g/dl (31.0-35.0); Mean Corpuscular Hemoglobin 24.7 pg (27.0-33.0); Mean Corpuscular Volume 80.5 fL (80.0-98.0); Platelet Count 317 X10*3/uL (160-400); Red Cell Distribution Width 15.6 % (11.0-16.0)
[2023-07-14 11:06] LABS: WBC ABN SCTR FOR CBC 1
[2023-07-14 11:31] LABS: Alanine Aminotransferase 11 U/L (0-31); Alkaline Phosphatase 65 U/L (39-117); Anion Gap 16 (12-20); Aspartate Amino Transferase 15 U/L (5-31); Bilirubin Total 0.8 mg/dL (0.0-1.0); Blood Urea Nitrogen 9 mg/dL (9-16); Calcium 9.3 mg/dL (8.4-10.2); Carbon Dioxide 22 mmol/L (22-29); Chloride 107 mmol/L (96-108); Estimated Glomerular Filt Rate > 60; Glucose Random 124 mg/dL (60-115); Potassium 3.6 mmol/L (3.3-5.1); Sodium 141 mmol/L (135-145); Total Protein 6.2 g/dL (6.5-8.0)
[2023-07-14 11:35] LABS: Band Neutrophils Percent 15 % (3-5); Eosinophils Percent Manual 1 % (0-4); Lymphocytes Percent Manual 22 % (20-40); Monocytes Percent Manual 23 % (2-11); Neutrophils Percent Manual 39 % (45-73)
[2023-07-14 11:38] LABS: Ovalocytes 1+ (5-14) /OIF; Polychromasia 1+ (0-2) /OIF; RBC Morphology NOTED
[2023-07-14 11:39] LABS: Dohle Bodies PRESENT; Platelet Estimate NORMAL (NORMAL); Platelet Morphology Comment NORMAL
[2023-07-14 11:40] LABS: Eosinophils Absolute Manual 0.1 X10*3/uL (0.0-0.4); Lymphocytes Absolute Manual 1.1 X10*3/uL (1.2-4.9); Monocytes Absolute Manual 1.2 X10*3/uL (0.1-1.2); Neutrophils Absolute Manual 2.8 X10*3/uL (2.0-8.3); White Blood Count 5.1 X10*3/uL (4.8-10.8)
== END 2023-07-14 10:46 | disposition home or self-care (01) ==
LOC: HO.LAB 10:45
PROVIDERS: Internal Medicine Medical Oncology; PCP Student in an Organized Health Care Education/Training Program; Visit Provider Psychiatry & Neurology Neurology
DX: C20 Malignant neoplasm of rectum (principal)
CPT/HCPCS: 36415; 80053; 85007; 85025; 85027; 86704; 86706; 87340

== ENCOUNTER 2023-07-25 15:11 | Outpatient (REF) | payer MEDICAID, SELFPAY ==
--- NOTE | ~2023-07-25 | CT_ITS ---
EXAMINATION: CT HIP WITHOUT CONTRAST, RIGHT CLINICAL INFORMATION: Right hip pain. COMPARISON: Most recent CT chest/abdomen/pelvis dated 06/02/2023. TECHNIQUE: Multidetector volumetric imaging was obtained through the right hip without contrast material. Multiplanar reformatted images were submitted in coronal and sagittal planes. This CT examination was performed using dose optimization techniques as appropriate, variously including the following: *Automated exposure control *Adjustment of mA and/or kV according to patient size (this includes techniques or standardized protocols for targeted exams where dose is matched to indication/reason for exam; i.e. extremities or head) *Use of iterative reconstruction technique DLP: 244 mGy-cm. FINDINGS: Mild right hip joint space narrowing with small marginal osteophytes. No acute fracture or dislocation. No concerning lytic or blastic osseous lesion. No evidence of avascular necrosis. The visualized muscles and tendons are grossly intact; however, evaluation is limited on CT examination. Circumferential rectal wall thickening is partially visualized, similar when compared to the prior examination. No new large pelvic mass or fluid collection. CT/CT hip RT wo IV con IMPRESSION: 1. No acute fracture or dislocation. 2. Mild right hip osteoarthritis. 3. Circumferential rectal wall thickening, similar when compared to the prior examination.
== END 2023-07-25 15:12 | disposition home or self-care (01) ==
LOC: HO.CT 15:11
PROVIDERS: PCP Student in an Organized Health Care Education/Training Program; Visit Provider Internal Medicine Medical Oncology
DX: M25.551 Pain in right hip (principal)
CPT/HCPCS: 73700

== ENCOUNTER 2023-09-22 13:16 | Outpatient (REF) | payer MEDICAID, SELFPAY ==
--- NOTE | ~2023-09-22 | CT_ITS ---
EXAMINATION: CT ABDOMEN AND PELVIS WITH CONTRAST CLINICAL INFORMATION: Rectal cancer COMPARISON: Previous CT of the abdomen and pelvis May 2023 TECHNIQUE: Multidetector volumetric images were obtained from the superior aspect of the liver through the pubic symphysis following administration 85 mL of Omnipaque 350 intravenous contrast. Sagittal and coronal reformatted images were obtained on the technologist's workstation. Oral contrast: Yes This CT examination was performed using dose optimization techniques as appropriate, variously including the following: *Automated exposure control *Adjustment of mA and/or kV according to patient size (this includes techniques or standardized protocols for targeted exams where dose is matched to indication/reason for exam; i.e. extremities or head) *Use of iterative reconstruction technique DLP: 300 mGy-cm FINDINGS: LUNG BASES: Bilateral pulmonary nodules at the lung bases. These do not appear appreciably changed in size or number compared to May 2023. LIVER, GALLBLADDER, AND BILIARY TREE: Low-attenuation liver suggestive of fatty infiltration. No focal liver lesion. The gallbladder is contracted. PANCREAS: Unremarkable. SPLEEN: Unremarkable. ADRENAL GLANDS: Unremarkable. KIDNEYS AND URETERS: Left renal cyst. No imaging follow-up recommended. Kidneys are otherwise unremarkable. BLADDER: Calcifications along the anterior wall of the bladder GASTROINTESTINAL TRACT: Postsurgical changes following left lower quadrant colostomy and Noemy pouch. Small parastomal hernia containing fat. Unchanged appearance of irregular wall thickening of the rectum/rectal mass. The residual sigmoid colon and rectum demonstrate wall thickening and mucosal enhancement and contain fluid. 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 There is stranding of the fat May 2023 exam. There is question mild colitis of the transverse colon. Colon is otherwise unremarkable. The appendix is normal. The stomach and small bowel are normal. ABDOMINAL WALL: Small left parastomal hernia containing fat. LYMPH NODES: There is enlarged lymph nodes. An enlarged left internal iliac lymph node. This measures 1.1 x 1.7 cm and does not appear appreciably changed. No other adenopathy. VASCULAR: Atherosclerotic disease. No aneurysm. PELVIC VISCERA: Rectovaginal fistula. Uterus and adnexa otherwise unremarkable. OSSEOUS STRUCTURES: Degenerative changes of the spine. CT/CT abdomen pelvis w IV con IMPRESSION: Postsurgical change following Perla pouch. Unchanged appearance of rectal mass. Sigmoid colon and rectum demonstrate wall thickening and enhancement and appear distended containing fluid. Rectovaginal fistula. Fat stranding in presacral space and enlarged left internal iliac lymph node. These findings are all unchanged. Bilateral pulmonary nodules also unchanged. Fleischner guidelines were followed.
[2023-09-22] MEDS: iohexoL 350 MG/ML 100 ML INFUS..BTL 85 ML IV (14:30)
== END 2023-09-22 13:17 | disposition home or self-care (01) ==
LOC: HO.CT 13:16
PROVIDERS: PCP Student in an Organized Health Care Education/Training Program; Visit Provider Internal Medicine Medical Oncology
DX: C20 Malignant neoplasm of rectum (principal); R91.8 Other nonspecific abnormal finding of lung field
CPT/HCPCS: 74177; Q9967